=== PATIENT | female | born 1985 | race African-American/Black ===

== ENCOUNTER 2019-04-17 09:10 | Outpatient (RCR) | payer BC, SELFPAY ==
[2019-04-17 10:29] VITALS: BMI 46.1
[2019-04-17 10:30] VITALS: BMI 46.1
== END 2019-07-16 23:59 | disposition home or self-care (01) ==
LOC: ANHDMC 09:10
PROVIDERS: PCP Physician Assistant; Visit Provider Obstetrics & Gynecology
DX: O24.419 Gestational diabetes mellitus in pregnancy, unspecified control (principal); Z3A.30 30 weeks gestation of pregnancy; Z71.89 Other specified counseling; Z71.3 Dietary counseling and surveillance
CPT/HCPCS: 97802; G0108

== ENCOUNTER 2019-05-18 11:54 | Observation (INO) | payer BC, SELFPAY ==
--- NOTE | 2019-05-18 11:54 | OBADM ---
This patient, Sri Thompson, admitted to the OB room OB Post 117 for observation. Patient/family oriented to hospital policies and general routines including ID bracelet, bed and alarms, visiting hours, pain management, procedures, bathroom and other care routines, personal items, smoking policy, room service/diet, and visiting hours. Patient/Family are encouraged to report perceived risks to care and to ask questions if they do not understand what they are told or what they should do.
[2019-05-18 12:30] VITALS: BMI 46.8
[2019-05-18 12:46] VITALS: BP 116/65; PULSE 72
--- NOTE | 2019-05-18 16:38 | PC.NURSE ---
Called Dr. Ho with pt status. Informed of pt complaining of back and pelvic pressure. Pt states that she does not feel the pain when she is sitting, only when she is standing. Pt states that her student pushed a desk into her abdomen. Reactive tracing. Occasional contractions seen, but less than 6 per hour. Blood type is A+. May D/C home.
--- NOTE | 2019-05-22 08:10 | PM.OBTRLD ---
OB - Triage/Final Diagnosis Visit Information Date of evaluation: 05/18/19 Reason for evaluation: threatened labor and other (back pain)
== END 2019-05-18 14:05 | disposition home or self-care (01) ==
PROVIDERS: Admitting Provider Student in an Organized Health Care Education/Training Program; PCP Physician Assistant; Visit Provider Student in an Organized Health Care Education/Training Program
DX: O47.03 False labor before 37 completed weeks of gestation, third trimester (principal); Z3A.34 34 weeks gestation of pregnancy; O99.89 Other specified diseases and conditions complicating pregnancy, childbirth and the puerperium; M54.9 Dorsalgia, unspecified
CPT/HCPCS: G0378; G0379

== ENCOUNTER 2019-06-07 15:08 | Inpatient (IN) | payer BC, SELFPAY ==
[2019-06-07 17:45] LABS: Glucose Point of Care 116 (65-105)
--- NOTE | 2019-06-07 18:00 | OBADM ---
This patient, Sri Thompson, admitted to the OB room OB Post 113 for observation. Patient/family oriented to hospital policies and general routines including ID bracelet, bed and alarms, visiting hours, pain management, procedures, bathroom and other care routines, personal items, smoking policy, room service/diet, and visiting hours. Patient/Family are encouraged to report perceived risks to care and to ask questions if they do not understand what they are told or what they should do.
[2019-06-07] MEDS: LACTATED RINGERS 1,000 ML 200 ML IV CONT (18:35)
--- NOTE | 2019-06-07 19:30 | PC.NURSE ---
Updated Dr. Ho on FHT and maternal assessment. Patient denies contractions. Patient resting comfortably in left lateral position. Dr. Ho reviewed strip at home, will call back with further orders.
--- NOTE | 2019-06-07 19:49 | PC.NURSE ---
Order given to keep patient overnight for observation and FHT monitoring. Patient to continue to take home medications. Patient and FHT will be re-evaluated in AM.
--- NOTE | 2019-06-07 19:54 | PC.NURSE ---
Order given to discontinue LR.
[2019-06-07 21:47] VITALS: BP 109/70; PULSE 64
[2019-06-07] MEDS: glyBURIDE 5 MG TABLET PO (21:50)
[2019-06-07 21:52] LABS: Glucose Point of Care 160 (65-105)
[2019-06-08] VITALS (165 sets, daily range): BP systolic 108–195; BP diastolic 53–138; PULSE 25–104; RESP 18–20; TEMP 36.2–36.9; O2SAT 85–100; BMI 48.2
--- NOTE | 2019-06-08 00:46 | LDADM ---
This patient, Sri Thompson, was admitted to Labor/Delivery/Recovery 109 on 06/08/19 at 00:46. Plans for labor, pain management and were discussed with patient. Patient/family oriented to hospital policies and general routines including ID bracelet, bed and alarms, visiting hours, pain management, procedures, bathroom and other care routines, personal items, smoking policy, room service/diet and guest tray routines, security routines, and visiting hours. Patient/Family are encouraged to report perceived risks to care and to ask questions if they do not understand what they are told or what they should do. See OBIX for further documentation.
[2019-06-08] MEDS: LACTATED RINGERS 1,000 ML 125 ML IV CONT ×2 (01:30→09:35)
[2019-06-08] MEDS: MISOPROSTOL 25 MCG TABLET VAGINAL ×2 (02:12→06:27)
[2019-06-08 02:21] LABS: Basophils Percent Auto 0.3 % (0.2-1.2); Eosinophils Absolute Auto 0.1 K/mm3 (0-0.3); Eosinophils Percent Auto 0.8 % (0-4.4); Hematocrit 33.9 % (37.0-47.0); Immature Granulocyte Absolute 0.03 K/mm3 (0.00-0.031); Immature Granulocyte Percent A 0.4 % (0-0.5); Lymphocytes Absolute Auto 2.22 K/mm3 (0.9-3.2); Lymphocytes Percent Auto 28.9 % (18.3-44.2); Mean Corpuscular HGB Conc 32.4 g/dl (32-36); Mean Corpuscular Hemoglobin 29.6 pg (26-34); Mean Corpuscular Volume 91.4 fl (80-100); Mean Platelet Volume 9.1 fl (7.4-10.4); Monocytes Absolute Auto 0.8 K/mm3 (0.1-0.6); Monocytes Percent Auto 10.3 % (2.6-8.5); Neutrophils Absolute Auto 4.6 K/mm3 (1.3-6.7); Neutrophils Percent Auto 59.3 % (45.5-73.1); Platelet Count Result 225 k/mm3 (150-375); Red Blood Count 3.71 M/mm3 (4.2-5.4); Red Cell Distribution Width 14.4 % (11.5-14.5); White Blood Count 7.7 K/mm3 (4.5-10.0)
--- NOTE | 2019-06-08 05:24 | PC.NURSE ---
Called Lab in regards to missing results for RPR. clock repair technician stated she will look into it and call us if anything further is needed.
[2019-06-08 05:55] LABS: Glucose Point of Care 69 (65-105)
[2019-06-08 07:50] LABS: Glucose Point of Care 64 (65-105)
--- NOTE | 2019-06-08 08:11 | WPDHPUPDATE1 ---
History and Physical Update Update Date/Time: 06/08/19 08:11 34 yo G1 at 37w6d with complicated by gestational diabetes. She was sent to triage for NST which was found to be non-reactive. Pt received a 11/23 BPP. She was kept overnight for observation. FHT continued to have recurrent decelerations. She endorses good FM. She denies any vaginal bleeding or LOF History and Physical has been reviewed, including an updated exam of the patient. There are NO changes in the patient's condition. Risks, benefits, and alternatives have been discussed and questions answered. Patient agrees to proceed with procedure. A/P: 34 you G1 at 37w6 with NRFHT admit to L&D routine admission orders plan for IOL due to NRFHT Rh+ GBS neg FHT category 2 plan for cervical cytotec continuous EFM will plan for insulin sliding scale for GDM
[2019-06-08 09:02] LABS: Rapid Plasma Reagin Non-Reactive (NonReactive)
--- NOTE | 2019-06-08 10:47 | WPDANESEPPF ---
Anes - Initial Pre Proc Eval Date/Time: 06/08/19 10:47 Surgeon: Bakari Daniel MD Pre Op Diagnosis: contractions Patient Data Age: 34 Gender: F Height: 5 ft 11 in Weight: 157 kg Last Vital Signs Temp 36.8 C 06/08/19 06:29 Pulse 64 06/08/19 10:46 BP 128/57 L 06/08/19 10:46 Pulse Ox 100 06/08/19 10:44 Allergies Allergy/AdvReac Type Severity Reaction Status Date / Time Cephalosporins Allergy Unknown Swelling Verified 05/17/19 16:13 Penicillins Allergy Unknown Swelling Verified 05/17/19 16:13 Home Medications Medication Instructions Recorded Confirmed Type PNV cmb#95-ferrous fumarate-FA 1 tablet PO DAILY 05/26/19 06/07/19 History [] glyburide 5 mg PO HS 05/26/19 06/07/19 History Laboratory Tests 06/07/19 06/07/19 06/08/19 17:41 21:48 01:13 WBC 7.7 K/mm3 K/mm3 (4.5-10.0) RBC 3.71 M/mm3 L M/mm3 (4.2-5.4) Hgb 11.0 g/dL L g/dL (12.0-15.0) Hct 33.9 % L % (37.0-47.0) MCV 91.4 fl fl (80-100) MCH 29.6 pg pg (26-34) MCHC 32.4 g/dl g/dl (32-36) RDW 14.4 % % (11.5-14.5) Plt Count 225 k/mm3 k/mm3 (150-375) MPV 9.1 fl fl (7.4-10.4) Immature Gran % (Auto) 0.4 % % (0-0.5) Neut % (Auto) 59.3 % % (45.5-73.1) Lymph % (Auto) 28.9 % % (18.3-44.2) [place] % (Auto) 10.3 % H % (2.6-8.5) Eos % (Auto) 0.8 % % (0-4.4) Baso % (Auto) 0.3 % % (0.2-1.2) Lymph # (Auto) 2.22 K/mm3 K/mm3 (0.9-3.2) [place] # (Auto) 0.8 K/mm3 H K/mm3 (0.1-0.6) Eos # (Auto) 0.1 K/mm3 K/mm3 (0-0.3) Baso # (Auto) 0.0 K/mm3 K/mm3 (0.0-0.1) Abs Immat Gran (auto) 0.03 K/mm3 K/mm3 (0.00-0.031) Absolute Neuts (auto) 4.6 K/mm3 K/mm3 (1.3-6.7) Absolute Nucleated RBC 0.0 K/mm3 K/mm3 (0.0-0.012) Nucleated RBC % 0.0 % % (0.0-0.2) POC Capillary Glucose 116 mg/dl H mg/dl 160 mg/dl H mg/dl (65-105) (65-105) RPR Blood Type Antibody Screen 06/08/19 06/08/19 06/08/19 01:13 01:13 03:51 WBC RBC Hgb Hct MCV MCH MCHC RDW Plt Count MPV Immature Gran % (Auto) Neut % (Auto) Lymph % (Auto) [place] % (Auto) Eos % (Auto) Baso % (Auto) Lymph # (Auto) [place] # (Auto) Eos # (Auto) Baso # (Auto) Abs Immat Gran (auto) Absolute Neuts (auto) Absolute Nucleated RBC Nucleated RBC % POC Capillary Glucose 69 mg/dl mg/dl (65-105) RPR Non-reactive (NonReactive) Blood Type A Positive Antibody Screen Negative 06/08/19 07:23 WBC RBC Hgb Hct MCV MCH MCHC RDW Plt Count MPV Immature Gran % (Auto) Neut % (Auto) Lymph % (Auto) [place] % (Auto) Eos % (Auto) Baso % (Auto) Lymph # (Auto) [place] # (Auto) Eos # (Auto) Baso # (Auto) Abs Immat Gran (auto) Absolute Neuts (auto) Absolute Nucleated RBC Nucleated RBC % POC Capillary Glucose 64 mg/dl L mg/dl (65-105) RPR Blood Type Antibody Screen Patient hx anesthesia problems: none Family hx anesthesia problems: none PMFSH Past Medical History Medical History (Updated 06/08/19 @ 10:50 by Vasu Gee MD) Anxiety Diabetes Family History Family History Grandparent Diabetes mellitus Mother Patient's mother is in good health Father Patient's father is in good health Family history of diabetes joyce
--- NOTE | 2019-06-08 11:18 | PM.OBPNLAB ---
Pain Control Date/time seen: 06/08/19 11:18 Pain control: epidural Comments: pt comfortable now with epidural. Pelvic Exam Dilation (cm): 3 Effacement (%): 50 station: -3 Amniotic membrane status: Intact Contractions Monitor mode: External Contraction frequency: 4 Contraction pattern: Regular Status status: Category ll Comments: FHT with recurrent decelerations, FHT returns back to baseline after decel, moderate variability Assessment and Plan Assessment: induction ongoing Plan: continuous present management Comments: FHT category 2. FHT responding to interventions. discussed POC with patient. will continue labor induction. Pt still getting comfortable with epidural. Will plan for AROM and placement of IUPC after patient comfortable.
[2019-06-08 11:23] LABS: Glucose Point of Care 74 (65-105)
--- NOTE | 2019-06-08 11:52 | PM.OBPNLAB ---
Pain Control Date/time seen: 06/08/19 11:52 Pain control: epidural Pelvic Exam Dilation (cm): 3 Effacement (%): 50 station: -3 Amniotic membrane status: Ruptured Comments: AROM for clear fluid Contractions Monitor mode: Internal Contraction frequency: 4 Contraction pattern: Regular Status status: Category ll Assessment and Plan Assessment: induction ongoing Plan: continuous present management Comments: AROM for scant amount of clear fluid. IUPC placed. D5%LR given. Pt BS was 74. pt does not routinely have good glycemic control. will give D5LR and monitor. transition to LR with insulin sliding scale if BS >200.
[2019-06-08] MEDS: DEXTROSE 5%/LACTATED RINGERS 1,000 ML 100 ML IV CONT (11:58)
[2019-06-08] MEDS: LABETALOL HCL INJ 100 MG/20 ML VIAL 20 MG IV PUSH (12:35)
[2019-06-08 13:10] LABS: Alanine Aminotransferase 16 U/L (4-35); Albumin Level 3.2 g/dL (3.5-5.1); Alkaline Phosphatase 106 U/L (38-126); Aspartate Amino Transferase 22 U/L (14-36); Bilirubin,Total 0.3 mg/dL (0.2-1.3); Blood Urea Nitrogen 6 mg/dL (7-17); Calcium 8.7 mg/dL (8.4-10.2); Carbon Dioxide 21 mmol/L (22-30); Chloride 102 mmol/L (98-107); Estimated CRCL calculation 159 ml/min; Estimated Glomerular Filt Rate > 60; Glucose 86 mg/dL (65-105); Potassium 4.2 mmol/L (3.4-5.0); Sodium 133 mmol/L (137-145); Uric Acid 4.4 mg/dL (2.5-7.5)
[2019-06-08 14:11] LABS: Glucose Point of Care 98 (65-105)
--- NOTE | 2019-06-08 16:41 | PM.OBPNLAB ---
Pain Control Date/time seen: 06/08/19 16:41 Pain control: epidural Comments: pt complaining of pain with contractions Pelvic Exam Dilation (cm): 6 Effacement (%): 90 station: -2 Amniotic membrane status: Ruptured Contractions Monitor mode: Internal Contraction frequency: 3 Contraction pattern: Regular Status status: Category l Assessment and Plan Pitocin rate (mU/min): 3 Assessment: induction ongoing Plan: continuous present management Comments: pt complaining of pain. will give dose of IV tylenol. continue to monitor
[2019-06-08 17:05] LABS: Glucose Point of Care 88 (65-105)
[2019-06-08] MEDS: MISOPROSTOL 200 MCG TABLET 800 MCG (18:49)
--- NOTE | 2019-06-08 18:59 | PM.OBPRVD ---
OB - Delivery Note Procedure Procedure: Patient pushed for a spontaneous vaginal delivery. A nuchal cord was noted x1 which was reduced on the perineum. The fetus was delivered atraumatically and placed on the maternal abdomen. The cord was clamped and cut after 1 minute of life. Thick meconium was noted at delivery. The mouth and nose were bulb suctioned on the maternal abdomen. The cord was double clamped and cut and a segment of cord was collected for cord gases. Cord blood was collected for blood type and Coomb's testing. The placenta delivered spontaneously and was noted to be intact. The perineum was inspected and there was a 1st degree perineal laceration as well as a periclitoral laceration. A small blood vessel near the periclitoral laceration was noted to be bleeding. The patient was complaining of feeling pain so the area was anesthetised with local lidocaine. The laceration was repaired with 3-0 vicryl in the usual fashion. Hemostasis was obtained with a series of figure of eight sutures in the periclitoral laceration. It was difficult to perform fundal massage given body habitus. There was a small amount of bright red bleeding from the cervix. 800 mcg of cytotec was placed rectally. The uterus was firm and good hemostasis was noted. The patient and fetus were stable in the delivery room. events: Gestational Diabetes, Labor Induction and Meconium Stained Fluid Intrapartal events: Diabetes and Deceleration Induction method: AROM, per misoprostol protocol and per pitocin protocol Delivery monitor: external FHT Route of delivery: Episiotomy description: None Laceration description: Periurethral - 1st Degree (extending to elsie-clitoral) Delivery repair: vicryl Specimen: Yes (placenta) Estimated blood loss (mL): 300 Anesthesia type: Local Disposition: floor () Complications: No immediate complications Baby Date of : 06/08/19 Time of : 18:27 Weeks of gestation at delivery: 37 Infant gender: Male Weight (pounds): 8 Weight (ounces): 7 presentation: vertex position: Right Occiput Anterior Placenta delivery description: Spontaneous cord vessel description: 3 Vessels, Nuchal Cord and Reduced score one minute: 8 score five minutes: 9
[2019-06-08] MEDS: BENZOCAINE 20% AER SPR (*SP) 56 GM CAN 1 SPRAY TOPICAL (20:56)
[2019-06-08] MEDS: WITCH HAZEL 40 PADS 1 PAD TOPICAL (20:56)
[2019-06-08] MEDS: IBUPROFEN 600 MG TABLET PO (21:16)
--- NOTE | 2019-06-08 22:25 | OBPPTRN ---
Patient transferred to post room #277 via wheelchair - arrived via crib. Support person present. Oriented to unit, room, information board, rooming in, admission packet and security measures. Patient verbalizes understanding.
[2019-06-09 05:37] LABS: Hematocrit 31.5 % (37.0-47.0); Hemoglobin 10.2 g/dL (12.0-15.0)
[2019-06-09] MEDS: DOCUSATE SODIUM 100 MG CAPSULE PO (07:11)
[2019-06-09] MEDS: MULTIVIT/MIN/PREN/FOL AC/IRON TABLET 1 TAB PO (07:11)
[2019-06-09] MEDS: IBUPROFEN 600 MG TABLET PO ×2 (07:11→13:30)
--- NOTE | 2019-06-09 07:30 | P.PNOB_ITS ---
OB - PN: Subj Subjective Date/time seen: 06/09/19 07:30 Patient comments: no complaints, pain well controlled and tolerating diet [place] feeding status: exclusively breast feeding Narrative: patient doing well this AM. No complaints. Pain is well controlled. She reports minimal bleeding. She is ambulating and voiding without difficulty. She is tolerating PO. She denies N/V, fever, chills. OB - PN: Obj Data Labs CBC & Chem 7: 06/09/19 05:27 06/08/19 12:26 Labs: Laboratory Results - last 24 hr 06/08/19 06/08/19 06/08/19 01:13 07:23 11:19 Hgb Hct Sodium Potassium Chloride Carbon Dioxide BUN Creatinine Estim Creat Clear Calc Estimated GFR Glucose POC Capillary Glucose 64 L 74 Uric Acid Calcium Total Bilirubin AST ALT Alkaline Phosphatase Total Protein Albumin RPR Non-reactive 06/08/19 06/08/19 06/08/19 12:26 13:38 17:02 Hgb Hct Sodium 133 L Potassium 4.2 Chloride 102 Carbon Dioxide 21 L BUN 6 L Creatinine 0.70 Estim Creat Clear Calc 159 Estimated GFR > 60 Glucose 86 POC Capillary Glucose 98 88 Uric Acid 4.4 Calcium 8.7 Total Bilirubin 0.3 AST 22 ALT 16 Alkaline Phosphatase 106 Total Protein 6.0 L Albumin 3.2 L RPR 06/09/19 05:27 Hgb 10.2 L Hct 31.5 L Sodium Potassium Chloride Carbon Dioxide BUN Creatinine Estim Creat Clear Calc Estimated GFR Glucose POC Capillary Glucose Uric Acid Calcium Total Bilirubin AST ALT Alkaline Phosphatase Total Protein Albumin RPR OB - PN A/P Plan day: 1 Plan: routine care Comments: patient doing well H/H stable BS controlled will plan for circumcision tomorrow continue routine care Time Spent With Patient Time: Total time spent is greater than 50% in coordination of care (as docum ented) at patient's floor/unit and/or counseling patient: Time with patient: less than 15 minutes Review of Systems Review of Systems: All systems reviewed & are unremarkable except as noted in HPI and below Exam Const: General: comfortable and no acute distress Resp: Effort & Inspection: normal respiratory effort Cardio: Rate: regular rate GI: GI Palp: Yes Soft to palpation and No Tenderness to palpation present (GI) Auscultation: normal bowel sounds Other: fundus firm and below umbilicus. Psych: Affect: normal affect
[2019-06-09 08:00] VITALS: BP 139/81; PULSE 84; RESP 18; TEMP 37.3
--- NOTE | 2019-06-09 09:48 | WPDANLDPN2 ---
Anes-Prog Note L&D Date/Time: 06/09/19 09:48 Comfortable throughout: labor and delivery Neuraxial method: epidural Epidural/Spinal procedure site: clean & non-tender Neuro status: Neuro function grossly intact. Cardiovascular status: normal Respiratory status: normal Airway patency: baseline Mental status: baseline Post-Op hydration status: normal Vital Signs: Last Vital Signs Temp 36.6 C 06/08/19 23:03 Pulse 70 06/08/19 23:03 Resp 18 06/08/19 23:03 BP 156/76 H 06/08/19 23:03 Pulse Ox 100 06/08/19 16:37 I/O: Intake & Output 06/08/19 06/09/19 06/09/19 23:59 07:59 15:59 Intake Total 1500 Output Total 140 Balance 1360 Post-procedural complaints: none Patient feedback: Patient satisfied with anesthetic care.
--- NOTE | 2019-06-09 15:01 | PM.OBDSVD ---
OB - DS: Summary OB Procedures : None OB Procedures Intrapartum: Spontaneous Vag Delivery OB Procedures: : None Status at Discharge Functional status at discharge: independent ambulation Overall status at discharge: patient is back to baseline Time Spent with Patient Time attestation: Total time spent providing and/or coordinating discharge services: Time spent: Less than 30 minutes Exam Const: General: comfortable and no acute distress Resp: Effort & Inspection: normal respiratory effort Auscultation: clear to auscultation bilaterally Cardio: Rate: regular rate GI: GI Palp: Yes Soft to palpation Auscultation: normal bowel sounds Other: Fundus firm below umbilicus Psych: Appearance: grossly normal Mental Status: mental status grossly normal Affect: normal affect DS: Data Data Completed and Pending Pending studies at discharge: Pending at discharge 06/08/19 18:30 Surgical [PTH] Routine Labs on day of discharge: Labs from last 24 hours 06/09/19 06/08/19 05:27 17:02 Hgb 10.2 L Hct 31.5 L POC Capillary Glucose 88 Discharge Plan Discharge Discharging Clinician: Quan Ho Patient Disposition: Home, Self-Care Activity: pelvic rest Diet: gestational diabetic Discharge Instructions: call or return for temperature >100.4, bleeding >2 pads/hr for 2 hrs, pain not controlled with medications, signs/symptoms of mastitis Patient Instructions: Antibiotic Form Stand Alone Forms: General Discharge Information Follow-up/Referrals: Bakari Daniel MD [Physician] - 4 Weeks Discharge Medications: New Qji-Z-Hhvlny Cream 1 applic topical PRN PRN (Reason: Sore Nipples) Qty: 1 RF: 0 acetaminophen [Mapap (acetaminophen)] 325 mg Tablet 650 mg PO Q6H PRN (Reason: Mild Pain (1-3) Or Headache) Qty: 30 RF: 0 Dermoplast (with menthol) 20-0.5 % Aerosol 1 spray topical PRN PRN (Reason: Perineal Discomfort) Qty: 1 RF: 0 ibuprofen 600 mg Tablet 600 mg PO Q6H PRN (Reason: Cramping) Qty: 30 RF: 0 Continued glyburide 5 mg Tablet 5 mg PO HS RF: 0 PNV cmb#95-ferrous fumarate-FA [] 28 mg iron- 800 mcg Tablet 1 tablet PO DAILY RF: 0 Date of admission: 06/08/19 00:46 Primary Care Provider: Georgi Whitman Admitting Provider: Bakari Daniel Attending physician on admission: Bakari Daniel
--- NOTE | 2019-06-09 17:26 | PC.NURSE ---
Patient viewed the discharge video Mother & Baby Care, The First Two Weeks . Patient was given the opportunity and encouraged to ask questions. Patient verbalized understanding of information shared and has been given the mother/baby guide for home reference.
--- NOTE | 2019-06-09 17:29 | PC.NURSE ---
Discharge instructions given to mother regarding follow up visit for b/p check on Tuesday06/11/19 at 1430. Pt. verbalized understanding. Instructed to pickup driver prescriptions for discomfort. No further questions or concerns verbalized. Very pleasant and cooperative. Going to [facility] to see when leaving here.
[2019-06-11 06:54] LABS: Glucose Point of Care 141 (65-105)
[2019-06-11 14:45] VITALS: BP 138/74; PULSE 60; RESP 20; TEMP 37.1
== END 2019-06-09 16:40 | disposition home or self-care (01) | DRG 768 ==
LOC: ANHLDR 17:34 → ANHOBPP 20:25 → ANHOB2 06-09 15:03 → ANHLDR 06-12 12:39 → ANHOB2 06-12 12:39
PROVIDERS: Obstetrics & Gynecology; Admitting Provider Student in an Organized Health Care Education/Training Program; PCP Physician Assistant; Visit Provider Student in an Organized Health Care Education/Training Program
DX: O24.429 Gestational diabetes mellitus in childbirth, unspecified control (principal); Z37.0 Single live birth; O70.20 Third degree perineal laceration during delivery, unspecified; Z3A.37 37 weeks gestation of pregnancy; Z23 Encounter for immunization; O76 Abnormality in fetal heart rate and rhythm complicating labor and delivery; O69.81X0 Labor and delivery complicated by cord around neck, without compression, not applicable or unspecified; E66.01 Morbid (severe) obesity due to excess calories; O99.214 Obesity complicating childbirth; P03.82 Meconium passage during delivery
CPT/HCPCS: 36415; 80053; 84550; 85014; 85018; 85025; 86592; 86850; 86900; 86901; 88307; A9270; J0131; J2590; J2795; J7120; J7121

== ENCOUNTER 2019-06-07 15:08 | Outpatient (RCR) | payer BC, SELFPAY ==
[2019-05-10 16:52] VITALS: BP 106/57; PULSE 72
[2019-05-17 16:15] VITALS: BP 118/63; PULSE 67
[2019-05-24 16:26] VITALS: BP 121/72; PULSE 68
[2019-05-31 15:58] VITALS: BP 123/75; PULSE 67
--- NOTE | ~2019-06-07 | US_ITS ---
EXAMINATION: US OB limited w BPP EXAM DATE: 06/07/2019 16:40 INDICATION: Gestational diabetes. Third trimester. TECHNIQUE: Pelvic obstetrical transabdominal sonogram was performed by a technologist. There are mu ltiple grayscale and Doppler images available for interpretation. Comparison is made to prior examina tion from 12/10/2018. FINDINGS: There is a single fetus identified in vertex presentation with a heart rate of 152 beats pe r minute. The placenta is located in the fundal position. There is no sonographic evidence of retrop lacental hemorrhage identified. AMNIOTIC FLUID INDEX Quadrant 1: 0 cm Quadrant 2: 2.1 cm Quadrant 3: 3.5 cm Quadrant 4: 2.9 cm Amniotic fluid index: 8.5 cm. (The 5th -- 95th percentile range is 7.3-23.9 for 38 weeks gestation age). BIOPHYSICAL PROFILE (performed by the technologist) breathing (30 sec sustained breathing in 30 minutes): 2 out of 2 movement (3 gross body movements in 30 minutes): 2 out of 2 tone (one episode of lpdjwmr-depmfkfhd-dfxqmws limb movement): 2 out of 2 Amniotic fluid pocket (2 cm): 2 out of 2 Total score: 8 out of 8 IMPRESSION: 1. Single fetus with heart rate of 152 bpm. 2. Normal biophysical profile score of 8 out of 8. 3. MATT 8.5 cm, lower limits of normal. Reviewed, dictated and finalized at location A. FRAME PROGRAMMER ANALYST
== END 2019-06-11 08:25 | disposition home or self-care (01) ==
LOC: ANHOBOP 15:08
PROVIDERS: PCP Physician Assistant; Visit Provider Obstetrics & Gynecology
DX: O24.419 Gestational diabetes mellitus in pregnancy, unspecified control (principal); Z3A.33 33 weeks gestation of pregnancy; Z3A.34 34 weeks gestation of pregnancy; Z3A.35 35 weeks gestation of pregnancy; Z3A.36 36 weeks gestation of pregnancy
CPT/HCPCS: 59025; 76815; 76819

== ENCOUNTER 2020-01-23 05:11 | Emergency (ER) | payer BC, SELFPAY ==
--- NOTE | ~2020-01-23 | XR_ITS ---
XR chest 2V DATE: 01/23/2020 06:05 INDICATION: Chest pain TECHNIQUE: PA and lateral views COMPARISON: None FINDINGS: Cardiomegaly. No hilar or mediastinal enlargement. No pulmonary infiltrate or consolidation , pleural effusion or pulmonary vascular congestion or pneumothorax. IMPRESSION: Cardiomegaly Reviewed, dictated and finalized at location A. IMPRESSION: Cardiomegaly
--- NOTE | 2020-01-23 05:13 | ECG_ITS ---
Measurements Intervals [place] Rate: 63 P: -32 SD: 173 QRS: 7 QRSD: 85 T: 5 QT: 390 QTc: 401 Interpretive Statements SINUS OR ECTOPIC ATRIAL RHYTHM BORDERLINE T WAVE ABNORMALITY- INFERIOR LEADS BORDERLINE ECG Electronically Signed On 01-23-2020 6:53:41 CDT by Danny Wasserman D.O.
[2020-01-23 05:15] VITALS: BP 164/116; PULSE 68; RESP 17; TEMP 37.2; O2SAT 100
[2020-01-23 05:31] LABS: Basophils Percent Auto 0.5 % (0.2-1.2); Eosinophils Absolute Auto 0.1 K/mm3 (0-0.3); Eosinophils Percent Auto 0.8 % (0-4.4); Hematocrit 37.2 % (37.0-47.0); Hemoglobin 11.8 g/dL (12.0-15.0); Immature Granulocyte Absolute 0.04 K/mm3 (0.00-0.031); Immature Granulocyte Percent A 0.5 % (0-0.5); Lymphocytes Absolute Auto 1.57 K/mm3 (0.9-3.2); Lymphocytes Percent Auto 21.3 % (18.3-44.2); Mean Corpuscular HGB Conc 31.7 g/dl (32-36); Mean Corpuscular Hemoglobin 28.8 pg (26-34); Mean Corpuscular Volume 90.7 fl (80-100); Mean Platelet Volume 8.9 fl (7.4-10.4); Monocytes Absolute Auto 0.6 K/mm3 (0.1-0.6); Monocytes Percent Auto 8.6 % (2.6-8.5); Neutrophils Percent Auto 68.3 % (45.5-73.1); Platelet Count Result 242 k/mm3 (150-375); Red Cell Distribution Width 12.2 % (11.5-14.5); White Blood Count 7.4 K/mm3 (4.5-10.0)
[2020-01-23] MEDS: BELLADONNA ALK/PHENOB ELIX 10 ML, MAG HYDROX/ALUMINUM HYD/SIMETH 30 ML, LIDOCAINE HCL 2... PO (05:35)
[2020-01-23] MEDS: ONDANSETRON INJ 4 MG/2 ML VIAL IV PUSH (05:35)
[2020-01-23 05:42] LABS: Anion Gap 8 mmol/L (8-16); Blood Urea Nitrogen 11 mg/dL (7-17); Calcium 9.2 mg/dL (8.4-10.2); Carbon Dioxide 29 mmol/L (22-30); Chloride 101 mmol/L (98-107); Estimated CRCL calculation 151 ml/min; Estimated Glomerular Filt Rate > 60; Glucose 184 mg/dL (65-105); Potassium 4.1 mmol/L (3.4-5.0); Sodium 138 mmol/L (137-145)
[2020-01-23 05:44] LABS: Prothrombin Time 12.4 Seconds (11.1-14.7)
[2020-01-23 05:45] LABS: Partial Thromboplastin Time 29.2 SECONDS (22.3-36.8)
[2020-01-23 05:54] LABS: Troponin I < 0.012 ng/mL (0.000-0.034)
--- NOTE | 2020-01-23 05:59 | ED.GENADULT ---
HPI - General Adult General Chief complaint: Chest Pain Stated complaint: chest pain Time Seen by Provider: 01/23/20 05:21 History of Present Illness HPI narrative: Patient is a 34-year-old female who presents the ER with abdominal pain and chest pain. Patient had eaten some pizza tonight and went to bed. She then started having some mild right low back pain she then developed diffuse abdominal cramping and discomfort. She has had some belching. She is now having some radiation of the abdominal discomfort up into her central chest region. No exertional component. No diarrhea. No known sick contacts. Has not taken any medications to improve her discomfort. She has had some nausea and vomiting as well. Related Data Home Medications Medication Instructions Recorded Confirmed PNV cmb#95-ferrous fumarate-FA 1 tablet PO DAILY 05/26/19 06/07/19 [] Allergies Allergy/AdvReac Type Severity Reaction Status Date / Time Cephalosporins Allergy Unknown Swelling Verified 10/09/19 13:13 Penicillins Allergy Unknown Swelling Verified 10/09/19 13:13 Review of Systems Review of Systems: All systems reviewed & are unremarkable except as noted in HPI and below Constitutional: Constitutional: Denies chills, Denies fever(s) and Denies weakness ENT: Denies nasal congestion and Denies sore throat Cardiovascular: Cardiovascular: Reports chest pain and Denies radiating jaw, neck or arm pain Respiratory: Respiratory: Denies cough, Denies dyspnea and Denies wheezing Gastrointestinal: Gastrointestinal: Reports abdominal pain, Denies diarrhea, Reports nausea and Reports vomiting Musculoskeletal: Musculoskeletal: Reports back pain and Denies muscle cramps PMFSH Past Medical History Medical History (Updated 01/23/20 @ 06:36 by Delfin Solitario MD) Anxiety Diabetes Elevated BP without diagnosis of hypertension Surgical History Surgical History (Updated 01/23/20 @ 06:07 by Delfin Solitario MD) History of tonsillectomy Social History Social History Smoking status: Never smoker Second hand tobacco smoke exposure: No Alcohol intake: current Substance use: never Gender identity (if verbalized by the patient): Female Spiritual care concerns: No Exam Narrative: Exam Narrative: GENERAL: Well-appearing, well-nourished, and in no acute distress. HEAD: Normocephalic, atraumatic. ENT: Mucous membranes moist. CHEST: Clear to auscultation. No respiratory distress. HEART: Regular rate and rhythm. Normal peripheral pulses. ABDOMEN: Soft, nontender, nondistended, normal active bowel sounds. EXTREMITIES: Normal range of motion. No edema. NEURO: Alert and oriented x3. PSYCH: Normal mood and affect. Course Course Emergency Course: Labs unremarkable. Patient received morphine/Phenergan/Zofran. Discharge home with supportive therapy. May be early GI illness given the crampy nature of the pain. No pain on palpation. Vital Signs Vital signs: Vital Signs Temperature 99.0 F 01/23/20 05:15 Pulse Rate 68 01/23/20 05:15 Respiratory Rate 17 01/23/20 05:15 Blood Pressure 164/116 H 01/23/20 05:15 Pulse Oximetry 100 01/23/20 05:15 Temperature 99.0 F 01/23/20 05:15 Pulse Rate 68 01/23/20 06:30 Respiratory Rate 24 H 01/23/20 06:30 Blood Pressure 161/86 H 01/23/20 06:30 Pulse Oximetry 100 01/23/20 06:30 Medical Decision Making Vital Signs Vital Signs: Vital Signs Temperature 99.0 F 01/23/20 05:15 Pulse Rate 68 01/23/20 05:15 Respiratory Rate 17 01/23/20 05:15 Blood Pressure 164/116 H 01/23/20 05:15 Pulse Oximetry 100 01/23/20 05:15 Temperature 99.0 F 01/23/20 05:15 Pulse Rate 68 01/23/20 06:30 Respiratory Rate 24 H 01/23/20 06:30 Blood Pressure 161/86 H 01/23/20 06:30 Pulse Oximetry 100 01/23/20 06:30 Lab Data Result diagrams: 01/23/20 05:24 01/23/20 05:24
--- NOTE | 2020-01-23 06:07 | PC.NURSE ---
Added on Lipase and Hepatic panel to pt. specimen.
[2020-01-23 06:20] LABS: Alanine Aminotransferase 19 U/L (4-35); Albumin Level 4.2 g/dL (3.5-5.1); Alkaline Phosphatase 90 U/L (38-126); Aspartate Amino Transferase 23 U/L (14-36); Bilirubin,Total 0.4 mg/dL (0.2-1.3); Lipase 104 U/L (23-300)
[2020-01-23] MEDS: MORPHINE SULFATE (*CRX) 4 MG/ML INJ IV PUSH (06:26)
[2020-01-23] MEDS: PROMETHAZINE HCL 25 MG/ML AMPUL 12.5 MG IV PUSH (06:26)
[2020-01-23 06:30] VITALS: BP 161/86; PULSE 68; RESP 24; O2SAT 100
== END 2020-01-23 06:49 | disposition home or self-care (01) ==
PROVIDERS: Emergency Provider Emergency Medicine; PCP Physician Assistant
DX: R10.84 Generalized abdominal pain (principal); E11.9 Type 2 diabetes mellitus without complications; F41.9 Anxiety disorder, unspecified
CPT/HCPCS: 36415; 71046; 80048; 80076; 83690; 84484; 85025; 85610; 85730; 93005; 96374; 96375; 99284; A9270; J2270; J2405; J2550

== ENCOUNTER 2023-01-13 09:44 | Emergency (ER) | payer BC, SELFPAY ==
[2023-01-13] VITALS (7 sets, daily range): BP systolic 114–132; BP diastolic 70–86; PULSE 61–80; RESP 13–20; TEMP 36.4; O2SAT 92–100
--- NOTE | ~2023-01-13 | CT_ITS ---
CT of the Abdomen and Pelvis: Indication: Abdominal pain Technique: 2.5 mm axial scans were obtained through the abdomen and pelvis following intravenous adm inistration of 100 cc of Omnipaque 350. Dose reduction technique was used on this scan by utilizing a utomated exposure control and iterative reconstruction technique. The dose-length product (DLP) was 1 547.13 mGy-cm. Findings: Scans through the lung bases are unremarkable. The liver, spleen, pancreas, gallbladder, adrenals and kidneys are within normal limits. No evidence of aortic aneurysm. No lymphadenopathy. Possible concentric wall thickening focally at the hepatic flexure region of the colon (axial images 64-66 for example). No tina bowel obstruction. No other bowel pathology evident. Images through the pelvis were performed. Urinary bladder unremarkable. No adnexal mass seen. No asci brenda. Impression: Possible focal area of concentric wall thickening at the hepatic flexure the colon. Underlying coloni c neoplasm is a potential consideration, despite patient's relatively young age. Consider colonoscopy or enema study to further evaluate. Reviewed, dictated and finalized at [facility]. Impression: Possible focal area of concentric wall thickening at the hepatic flexure the co frank. Underlying colonic neoplasm is a potential consideration, despite patient' s relatively young age. Consider colonoscopy or enema study to further evaluate .
--- NOTE | 2023-01-13 10:09 | ED.GENADULT ---
HPI - General Adult General Chief complaint: Nausea/Vomiting/Diarrhea Stated complaint: N/V/D Time Seen by Provider: 01/13/23 09:55 History of Present Illness HPI narrative: Sri Thompson is a 37 y/o female with PMHx of HTN, DM, HLD who presents with complaints of mid abdominal pain that moves across lower abdomen with nausea vomited X 5 today and diarrhea. Denies fever/chills reports feeling cold chills. Denies changes with urine. LMP Dec 13. Also reports of having a sore throat that started yesterday but otherwise felt well yesterday. No chest pain/ shortness of breath. Related Data Home Medications Medication Instructions Recorded Confirmed vit no.95-ferrous 1 tablet PO DAILY 05/26/19 10/29/22 fumarate 28 mg-folic acid 800 mcg tablet () Allergies Allergy/AdvReac Type Severity Reaction Status Date / Time Cephalosporins Allergy Unknown Swelling Verified 01/13/23 10:06 Penicillins Allergy Unknown Swelling Verified 01/13/23 10:06 Review of Systems Review of Systems: CONSTITUTIONAL: Denies fever, chills, or sweats. EYES: Denies visual changes, redness, or discharge. ENT: Denies rhinorrhea, congestion, sore throat, or otalgia. CARDIOVASCULAR: Denies chest pain, palpitations, or edema. RESPIRATORY: Denies cough or dyspnea. GASTROINTESTINAL: reports abdominal pain with nausea and vomiting and diarrhea that all started today. GENITOURINARY: Denies dysuria or hematuria. SKIN: Denies rash or itching. MUSCULOSKELETAL: Denies back pain, joint pain, or myalgia. NEUROLOGIC: Denies headache, numbness, dizziness, or weakness. PSYCHIATRIC: Denies anxiety or depression. [facility], LATER [facility] Past Medical History Medical History Anxiety Diabetes Elevated BP without diagnosis of hypertension Surgical History Surgical History History of tonsillectomy Family History Family History Grandparent Diabetes mellitus Mother Patient's mother is in good health Father Patient's father is in good health Family history of diabetes mellitus in first degree relative Patient's father is , Onset Age: 48 Sibling Patient's sister is in good health Social History Social History Smoking status: Never smoker Second hand tobacco smoke exposure: No Alcohol intake: current Substance use: never Lack of Transportation: No Lack of Food: Never True Current Housing: I Have Housing Concerned About Future Housing: No Difficulty Paying Gas/Electric Bills: No Difficulty Paying for Meds: No Currently Unemployed: No Education: Master's Degree or Higher Difficulty w/ Childcare or Family Care: No Gender identity (if verbalized by the patient): Female Spiritual care concerns: No Exam Narrative: GENERAL: Well-appearing, well-nourished, and in no acute distress. HEAD: Normocephalic, atraumatic. EYES: PERRLA and EOMI. ENT: Nares clear, no rhinorrhea or epistaxis. Mucous membranes moist. Oropharynx without tonsillar hypertrophy exudate or other lesions. NECK: Supple. No adenopathy or masses. No carotid bruits or JVD CHEST: Clear to auscultation. No respiratory distress. No wheezes rales or rhonchi HEART: Regular rate and rhythm. No murmur heard. Normal peripheral pulses. ABDOMEN: Soft, nondistended, normal active bowel sounds, Pain reproduced with palpation to the mid abodmen EXTREMITIES: Normal range of motion. No edema. SKIN: Warm, dry, no rash. NEURO: No focal deficits. Alert and oriented x3. PSYCH: Normal mood and affect. Course Vital Signs Vital signs: Vital Signs Temperature 36.4 C 01/13/23 09:45 Pulse Rate 80 01/13/23 09:45 Respiratory Rate 20 01/13/23 09:45 Blood Pressure 132/86 01/13/23 09:45 Pulse Oximetry 100 01/13/23 09:45 Oxygen Delive
[2023-01-13 10:25] LABS: Basophils Percent Auto 0.6 % (0.2-1.2); Eosinophils Percent Auto 0.8 % (0-4.4); Hematocrit 43.5 % (37.0-47.0); Hemoglobin 13.5 g/dL (12.0-15.0); Immature Granulocyte Absolute 0.01 K/mm3 (0.00-0.031); Immature Granulocyte Percent A 0.2 % (0-0.5); Lymphocytes Absolute Auto 1.07 K/mm3 (0.9-3.2); Lymphocytes Percent Auto 20.6 % (18.3-44.2); Mean Corpuscular Hemoglobin 28.2 pg (26-34); Mean Corpuscular Volume 90.8 fl (80-100); Mean Platelet Volume 9.1 fl (7.4-10.4); Monocytes Absolute Auto 0.5 K/mm3 (0.1-0.6); Neutrophils Absolute Auto 3.5 K/mm3 (1.3-6.7); Neutrophils Percent Auto 67.8 % (45.5-73.1); Platelet Count Result 270 k/mm3 (150-375); Red Blood Count 4.79 M/mm3 (4.2-5.4); Red Cell Distribution Width 12.5 % (11.5-14.5); White Blood Count 5.2 K/mm3 (4.5-10.0)
[2023-01-13] MEDS: SODIUM CHLORIDE 0.9% IV 1,000 ML 999 ML IV CONT (10:25)
[2023-01-13] MEDS: DICYCLOMINE HCL INJ 20 MG/2 ML VIAL IM (10:27)
[2023-01-13] MEDS: ONDANSETRON INJ 4 MG/2 ML VIAL IV PUSH (10:27)
[2023-01-13] MEDS: KETOROLAC 30 MG/ML VIAL (*BKC) IV PUSH (10:29)
[2023-01-13] MEDS: FAMOTIDINE 20 MG/2 ML VIAL IV PUSH (10:29)
[2023-01-13 10:34] LABS: Alanine Aminotransferase 21 U/L (6-35); Albumin Level 4.8 g/dL (3.5-5.1); Alkaline Phosphatase 65 U/L (38-126); Anion Gap 10 mmol/L (8-16); Aspartate Amino Transferase 29 U/L (14-36); Bilirubin,Total 0.7 mg/dL (0.2-1.3); Blood Urea Nitrogen 12 mg/dL (7-17); Calcium 9.4 mg/dL (8.4-10.2); Carbon Dioxide 25 mmol/L (22-30); Chloride 104 mmol/L (98-107); Estimated CRCL calculation 138 ml/min; Estimated Glomerular Filt Rate > 60; Glucose 99 mg/dL (65-110); Lipase 79 U/L (23-300); Potassium 3.9 mmol/L (3.4-5.0); Sodium 139 mmol/L (137-145)
[2023-01-13 10:35] LABS: Lactic Acid Reflex 1.1 mmol/L (0.7-2.0)
[2023-01-13 11:04] LABS: Influenza A QL RT-PCR Negative (Negative); Influenza B QL RT-PCR Negative (Negative); RSV RNA, RT-PCR Negative (Negative); SARS-CoV-2 RNA PCR Negative (Negative)
[2023-01-13 11:28] LABS: Appearance Urine Slightly Cloudy (Clear); Bilirubin Urine Negative (Negative); Blood Urine Negative (Negative); Color Urine Dark Yellow (Yellow); Glucose Urine UA Negative (Negative); Ketones Urine 1+ mg/dL (Negative); Leukocyte Esterase Ur Negative LEU/UL (Negative); Nitrate Urine Negative (Negative); Protein Urine 1+ mg/dL (Negative); Specific Grav Ur >= 1.030 (1.001-1.035); Urobilinogen Urine 0.2 mg/dL (<2.0)
[2023-01-13 12:05] LABS: Add Urine Microscopic? YES; RBC Urine 0-2 /hpf (0-2); Squamous Epithelial Cell Urine Moderate /hpf (Few); WBC Urine 0-3 /hpf (0-3)
[2023-01-13 12:06] LABS: Bacteria Urine 2+ /hpf
[2023-01-13 12:07] LABS: Calcium Oxalate Crystals Urine Present /hpf
== END 2023-01-13 13:13 | disposition home or self-care (01) ==
PROVIDERS: Emergency Medicine; Emergency Provider Nurse Practitioner Family; PCP Physician Assistant
DX: K52.9 Noninfective gastroenteritis and colitis, unspecified (principal); Z20.822 Contact with and (suspected) exposure to COVID-19; I10 Essential (primary) hypertension; E11.9 Type 2 diabetes mellitus without complications; E78.5 Hyperlipidemia, unspecified; Z79.85 Long-term (current) use of injectable non-insulin antidiabetic drugs
CPT/HCPCS: 36415; 74177; 80053; 81001; 81025; 83605; 83690; 85025; 87637; 96361; 96372; 96374; 96375; 99284; J0500; J1885; J2405; J7030; Q9967

== ENCOUNTER 2023-02-11 07:36 | Outpatient (CLI) | payer BC, SELFPAY ==
--- NOTE | ~2023-02-11 | CT_ITS ---
EXAMINATION: CT abdomen pelvis w con DATE: 02/11/2023 08:03 INDICATION: Gastroenteritis. Colitis. TECHNIQUE: Computed tomography (CT) of the abdomen and pelvis was performed with 100 cc Omnipaque 350 intravenous contrast. The dose-length product was 1648.72 mGy-cm. Automated exposure control and ite rative reconstruction technique were employed. COMPARISON: CT dated 01/13/2023 FINDINGS: Lung bases are unremarkable. Heart size normal. No significant pleural or pericardial effus ion. The liver, spleen, pancreas, adrenal glands and kidneys are unremarkable. Gallbladder is present . Nonobstructive bowel pattern. Normal appendix. Small fat-containing umbilical hernia. Nonobstructiv e bowel gas pattern. No free air or free fluid. No abnormal pelvic masses or fluid collections. No si gnificant vascular abnormality. Mildly prominent mesenteric lymph nodes, likely reactive. No acute os seous abnormality. Mild lumbar spondylosis. IMPRESSION: 1. No acute abdominal abnormality. Reviewed, dictated and finalized at location B.
== END 2023-02-11 07:37 | disposition home or self-care (01) ==
LOC: ANHIMG 07:41
PROVIDERS: PCP Physician Assistant; Visit Provider Physician Assistant
DX: K52.9 Noninfective gastroenteritis and colitis, unspecified (principal)
CPT/HCPCS: 74177; Q9967

== ENCOUNTER 2023-02-17 00:06 | Emergency (ER) | payer BC, SELFPAY ==
--- NOTE | ~2023-02-17 | XR_ITS ---
EXAMINATION: XR chest 1V portable DATE: 02/17/2023 01:55 INDICATION: Left chest pain. TECHNIQUE: A single frontal view of the chest was obtained. COMPARISON: Chest 2 views 01/23/2020, CT abdomen and pelvis 02/17/2023 FINDINGS: There is no pneumonia, pleural effusion, or pneumothorax. The heart size is normal. IMPRESSION: 1. No acute cardiopulmonary disease. Reviewed, dictated and finalized at location E.
--- NOTE | ~2023-02-17 | CT_ITS ---
EXAMINATION: CT abdomen pelvis w con DATE: 02/17/2023 03:23 INDICATION: Abdominal pain. Nausea and vomiting. TECHNIQUE: Computed tomography (CT) of the abdomen and pelvis was performed with 100 mL Omnipaque 350 intravenous contrast. Automated exposure control and iterative reconstruction technique were employe d. The dose-length product was 1651.14 mGy-cm. COMPARISON: CT abdomen and pelvis 02/11/2023 FINDINGS: The visualized portions of the lung bases demonstrate mild atelectasis. No pleural effusion . The heart size is normal. No pericardial effusion. The liver, gallbladder, spleen, pancreas, adrena l glands, and kidneys are normal. There are no dilated loops of bowel. There is wall thickening of mu ltiple loops of ileum. The appendix is normal. There are no pathologically enlarged lymph nodes. Ther e is no free intraperitoneal fluid. There is mild thoracic and lumbar spondylosis. IMPRESSION: 1. New wall thickening of multiple loops of ileum, consistent with enteritis. Reviewed, dictated and finalized at location E.
[2023-02-17 00:25] VITALS: BP 141/95; PULSE 79; RESP 18; TEMP 36.6; O2SAT 100
[2023-02-17 01:14] LABS: Basophils Percent Auto 0.3 % (0.2-1.2); Eosinophils Percent Auto 0.3 % (0-4.4); Hematocrit 41.5 % (37.0-47.0); Hemoglobin 12.9 g/dL (12.0-15.0); Immature Granulocyte Absolute 0.02 K/mm3 (0.00-0.031); Immature Granulocyte Percent A 0.3 % (0-0.5); Lymphocytes Absolute Auto 0.92 K/mm3 (0.9-3.2); Lymphocytes Percent Auto 13.7 % (18.3-44.2); Mean Corpuscular HGB Conc 31.1 g/dl (32-36); Mean Corpuscular Hemoglobin 28.2 pg (26-34); Mean Corpuscular Volume 90.6 fl (80-100); Mean Platelet Volume 9.2 fl (7.4-10.4); Monocytes Absolute Auto 0.5 K/mm3 (0.1-0.6); Monocytes Percent Auto 7.7 % (2.6-8.5); Neutrophils Absolute Auto 5.2 K/mm3 (1.3-6.7); Neutrophils Percent Auto 77.7 % (45.5-73.1); Platelet Count Result 284 k/mm3 (150-375); Red Blood Count 4.58 M/mm3 (4.2-5.4); Red Cell Distribution Width 12.7 % (11.5-14.5); White Blood Count 6.7 K/mm3 (4.5-10.0)
--- NOTE | 2023-02-17 01:24 | ECG_ITS ---
Measurements Intervals [place] Rate: 64 P: 53 WA: 185 QRS: 8 QRSD: 83 T: 28 QT: 430 QTc: 446 Interpretive Statements SINUS RHYTHM DELAYED PRECORDIAL R/S TRANSITION BORDERLINE ECG COMPARED TO ECG 01/23/2020 05:19:48 SINUS RHYTHM NOW PRESENT Electronically Signed On 02-17-2023 6:25:22 CDT by Danny Wasserman D.O.
[2023-02-17 01:27] LABS: Alanine Aminotransferase 19 U/L (6-35); Albumin Level 4.5 g/dL (3.5-5.1); Alkaline Phosphatase 56 U/L (38-126); Anion Gap 7 mmol/L (8-16); Aspartate Amino Transferase 27 U/L (14-36); Bilirubin,Total 0.8 mg/dL (0.2-1.3); Blood Urea Nitrogen 12 mg/dL (7-17); Calcium 9.3 mg/dL (8.4-10.2); Carbon Dioxide 26 mmol/L (22-30); Chloride 103 mmol/L (98-107); Estimated CRCL calculation 157 ml/min; Estimated Glomerular Filt Rate > 60; Glucose 119 mg/dL (65-110); Lipase 57 U/L (23-300); Potassium 4.2 mmol/L (3.4-5.0); Sodium 136 mmol/L (137-145)
[2023-02-17] MEDS: SODIUM CHLORIDE 0.9% IV 1,000 ML 999 ML IV CONT (01:40)
[2023-02-17] MEDS: ONDANSETRON INJ 4 MG/2 ML VIAL IV PUSH (01:41)
[2023-02-17] MEDS: HYDROmorphone HCL INJ (*CRX) 1 MG/ML SYR IV PUSH (01:41)
--- NOTE | 2023-02-17 01:44 | ED.ABDPAIN ---
HPI - Abdominal Pain General Chief Complaint: Abdominal Pain Stated Complaint: abd pain, N/V/D Time Seen by Provider: 02/17/23 01:06 History of Present Illness HPI narrative: Patient is a 37-year-old female presenting with abdominal pain. Patient states that she was treated for colitis several weeks ago. She followed up with her PCP who obtained a repeat CT scan about 5 days ago which was normal. States that she was doing well until today when her abdominal pain returned as well as the diarrhea. States that she has had diarrhea all day long. States that she was also nauseated and had several episodes of emesis though now she is just dry heaving. She continues to have intermittent sharp pain all over her abdomen. No dysuria, hematuria, vaginal bleeding, vaginal discharge. States that she had an episode of some chest pain earlier which is resolved. No fevers or chills, shortness of breath, leg swelling. No further complaints. Related Data Home Medications Medication Instructions Recorded Confirmed vit no.95-ferrous 1 tablet PO DAILY 05/26/19 01/21/23 fumarate 28 mg-folic acid 800 mcg tablet () Allergies Allergy/AdvReac Type Severity Reaction Status Date / Time Cephalosporins Allergy Unknown Swelling Verified 01/21/23 07:55 Penicillins Allergy Unknown Swelling Verified 01/21/23 07:55 Review of Systems Review of Systems: All systems reviewed & are unremarkable except as noted in HPI and below PMFSH Past Medical History Medical History Anxiety Diabetes Elevated BP without diagnosis of hypertension Surgical History Surgical History History of tonsillectomy Family History Family History Grandparent Diabetes mellitus Mother Patient's mother is in good health Father Patient's father is in good health Family history of diabetes mellitus in first degree relative Patient's father is , Onset Age: 48 Sibling Patient's sister is in good health Social History Social History Smoking status: Never smoker Second hand tobacco smoke exposure: No Alcohol intake: current Substance use: never Lack of Transportation: No Lack of Food: Never True Current Housing: I Have Housing Concerned About Future Housing: No Difficulty Paying Gas/Electric Bills: No Difficulty Paying for Meds: No Currently Unemployed: No Education: Master's Degree or Higher Difficulty w/ Childcare or Family Care: No Gender identity (if verbalized by the patient): Female Spiritual care concerns: No Exam Narrative: GENERAL: Well-appearing, nontoxic, no acute distress, pleasant and cooperative HEAD: Normocephalic, atraumatic. EYES: PERRLA and EOMI. ENT: Nares clear, no rhinorrhea or epistaxis. Mucous membranes moist. NECK: Supple. CHEST: Clear to auscultation. No respiratory distress. HEART: Regular rate and rhythm ABDOMEN: Soft, diffusely tender without guarding or rebound EXTREMITIES: Normal range of motion. No edema. SKIN: Warm, dry, no rash. NEURO: No focal deficits. Alert and oriented x3. PSYCH: Normal mood and affect. Course Vital Signs Vital signs: Vital Signs Temperature 97.8 F 02/17/23 00:25 Pulse Rate 79 02/17/23 00:25 Respiratory Rate 18 02/17/23 00:25 Blood Pressure 141/95 H 02/17/23 00:25 Pulse Oximetry 100 02/17/23 00:25 Oxygen Delivery Room Air 02/17/23 00:25 Temperature 97.8 F 02/17/23 00:25 Pulse Rate 65 02/17/23 01:58 Respiratory Rate 16 02/17/23 01:58 Blood Pressure 118/68 02/17/23 01:58 Pulse Oximetry 95 02/17/23 01:58 Oxygen Delivery Room Air 02/17/23 00:25 MDM - Abdominal Pain MDM Narrative Medical decision making narrative: Patient is a 37-year-old fe
[2023-02-17 01:58] VITALS: BP 118/68; PULSE 65; RESP 16; O2SAT 95
[2023-02-17 02:25] LABS: Troponin I < 0.012 ng/mL (0.000-0.034)
[2023-02-17 02:37] LABS: Beta HCG Quantitative < 2.39 mIU/ML
[2023-02-17 03:44] LABS: Appearance Urine Turbid (Clear); Bacteria Urine 4+ /hpf; Bilirubin Urine Negative (Negative); Blood Urine 2+ (Negative); Color Urine Dark Yellow (Yellow); Glucose Urine UA Negative (Negative); Hyaline Casts Urine Present /lpf; Ketones Urine 2+ mg/dL (Negative); Leukocyte Esterase Ur Trace LEU/UL (Negative); Mucus Urine Present /lpf; Nitrate Urine Negative (Negative); Protein Urine 1+ mg/dL (Negative); Specific Grav Ur 1.025 (1.001-1.035); Squamous Epithelial Cell Urine Many /hpf (Few); Urobilinogen Urine 0.2 mg/dL (<2.0); pH Urine 5.5 (5.0-9.0)
[2023-02-17 03:45] LABS: Add Urine Microscopic? YES
[2023-02-17 04:29] LABS: Troponin I < 0.012 ng/mL (0.000-0.034)
[2023-02-17] MEDS: metroNIDAZOLE 250 MG TABLET 500 MG PO (06:19)
[2023-02-17] MEDS: CIPROFLOXACIN 500 MG TAB PO (06:19)
--- NOTE | 2023-02-17 06:27 | PC.NURSE ---
Cipro override due to first dose being dropped on the ground.
== END 2023-02-17 06:34 | disposition home or self-care (01) ==
PROVIDERS: Emergency Provider Emergency Medicine; PCP Physician Assistant
DX: K52.9 Noninfective gastroenteritis and colitis, unspecified (principal); N39.0 Urinary tract infection, site not specified; E11.9 Type 2 diabetes mellitus without complications; Z79.85 Long-term (current) use of injectable non-insulin antidiabetic drugs
CPT/HCPCS: 36415; 71045; 74177; 80053; 81001; 83690; 84484; 84702; 85025; 87086; 87088; 93005; 96361; 96374; 96375; 99284; A9270; J1170; J2405; J7030; Q9967

== ENCOUNTER 2023-02-28 15:30 | Outpatient (CLI) | payer BC, SELFPAY ==
[2023-02-28 16:24] LABS: CRP < 0.5 mg/dL (<1.0)
[2023-02-28 16:40] LABS: Erythrocyte Sedimentation Rate 16 mm/hr (0-20)
[2023-02-28 17:00] LABS: Toxigenic C. Diff NEGATIVE (NEGATIVE)
[2023-02-28 17:16] LABS: Thyroid Stimulating Hormone Reflex 0.449 uIU/mL (0.465-4.68)
[2023-02-28 17:43] LABS: Free T4 Free Thyroxine Reflex 1.04 ng/dL (0.78-2.19)
[2023-02-28 18:37] LABS: Total Triiodothyronine (T3) 1.13 NG/ML (0.97-1.69)
[2023-03-04 20:25] LABS: Immunoglobulin A 115 mg/dL (47-310); TTG IGA AB <1.0 U/mL (<15.0)
[2023-03-06 14:56] LABS: Calprotectin, Stool 16 mcg/g
== END 2023-02-28 15:31 | disposition home or self-care (01) ==
LOC: ANHLAB 15:31
PROVIDERS: PCP Physician Assistant; Visit Provider Nurse Practitioner
DX: K52.9 Noninfective gastroenteritis and colitis, unspecified (principal)
CPT/HCPCS: 36415; 82784; 83993; 84439; 84443; 84480; 85652; 86140; 86364; 87045; 87177; 87209; 87269; 87427; 87449; 87493

== ENCOUNTER 2023-03-21 01:52 | Day surgery (SDC) | payer BC, SELFPAY ==
[2023-03-08 08:22] VITALS: BMI 37.6
--- NOTE | 2023-03-18 10:51 | SUR.PREOP ---
Patient called regarding upcoming procedure. Reviewed preop instructions, appointment times, and procedure prep.
--- NOTE | 2023-03-18 10:55 | SUR.PREOP ---
Patient called regarding upcoming procedure. Reviewed preop instructions, appointment times, and procedure prep. Prep instructions emailed to the patient per patient's request.
[2023-03-21 11:23] LABS: Glucose Point of Care 102 mg/dl (65-105)
[2023-03-21 11:27] VITALS: BP 121/78; PULSE 57; RESP 18; TEMP 36.3; O2SAT 100; BMI 39.2
--- NOTE | 2023-03-21 11:33 | WPDANESEPPF ---
Anes - Initial Pre Proc Eval Procedure: Operation Date: 03/21/23 12:30 Proposed Procedures p Colonoscopy - Agapito Chirinos MD Date/Time: 03/21/23 11:33 Surgeon: Agapito Chirinos MD Pre Op Diagnosis: Noninfective gastroenteritis and colitis Patient Data Age: 37 Gender: F Height: 1.8 m Weight: 127.8 kg Last Vital Signs Temp 97.3 F L 03/21/23 11:27 Pulse 57 L 03/21/23 11:27 Resp 18 03/21/23 11:27 BP 121/78 03/21/23 11:27 Pulse Ox 100 03/21/23 11:27 O2 Del Method Room Air 03/21/23 11:27 Allergies Allergy/AdvReac Type Severity Reaction Status Date / Time Cephalosporins Allergy Unknown Swelling Verified 03/21/23 11:23 Penicillins Allergy Unknown Swelling Verified 03/21/23 11:23 Home Medications Medication Instructions Recorded Confirmed Type amlodipine 5 mg tablet 5 mg PO DAILY #90 tabs 09/25/21 03/21/23 Rx rosuvastatin 5 mg tablet 5 mg PO DAILY #90 tabs 12/09/21 03/21/23 Rx ondansetron 4 mg disintegrating 4 mg PO Q6H PRN nausea and 01/13/23 03/21/23 Rx tablet vomiting #20 tabs ferrous sulfate 325 mg (65 mg 325 mg PO DAILY 03/08/23 03/21/23 History iron) tablet fiber 1 cap PO DAILY 03/08/23 03/21/23 History omega-3 fatty acids 1 cap PO DAILY 03/08/23 03/21/23 History Laboratory Tests 03/21/23 11:21 POC Capillary Glucose 102 mg/dl (65-105) Patient hx anesthesia problems: none Family hx anesthesia problems: none Results Review: All pre-operative results and documents have been reviewed as part of the pre-operative evaluation. [facility] Past Medical History Medical History Anxiety Diabetes Elevated BP without diagnosis of hypertension Surgical History Surgical History History of tonsillectomy Family History Family History Grandparent Diabetes mellitus Mother Patient's mother is in good health Father Patient's father is in good health Family history of diabetes mellitus in first degree relative Patient's father is , Onset Age: 48 Sibling Patient's sister is in good health Social History Social History Smoking status: Never smoker Second hand tobacco smoke exposure: No Alcohol intake: current Alcohol use details: occasional-rare Substance use: never Substance use type: does not use Lack of Transportation: No Lack of Food: Never True Current Housing: I Have Housing Concerned About Future Housing: No Difficulty Paying Gas/Electric Bills: No Difficulty Paying for Meds: No Currently Unemployed: No Education: Master's Degree or Higher Difficulty w/ Childcare or Family Care: No Living arrangements: with family Gender identity (if verbalized by the patient): Female Spiritual care concerns: No Anes - Eval Final PreProcedure Day of Procedure 03/21/23 11:33 Patient weight: morbidly obese Heart: regular rate and rhythm Lungs: clear to auscultation Airway: Mallampati scale class III Neurological: alert and oriented Last oral intake: >/= 8 hours ASA classification: III Emergent: no Anesthetic plan: proceed Anesthesia type and monitoring: general GIVS and standard monitoring Results Review: All pre-operative results and documents have been reviewed as part of the pre-operative evaluation. Informed Consent: The patient's anesthetic plan and its attendant risks and benefits were discussed with the patient/family/POA. Questions were solicited and answers provided to the satisfaction of the patient/family/POA.
[2023-03-21] MEDS: LACTATED RINGERS 1,000 ML 150 ML IV CONT (11:46)
--- NOTE | 2023-03-21 11:56 | WPDHPUPDATE1 ---
History and Physical Update Update Date/Time: 03/21/23 11:56 History and Physical has been reviewed, including an updated exam of the patient. There are NO changes in the patient's condition. Risks, benefits, and alternatives have been discussed and questions answered. Patient agrees to proceed with procedure.
[2023-03-21 11:57] VITALS: BP 136/72; PULSE 61; RESP 19; O2SAT 100
--- NOTE | 2023-03-21 12:47 | SUR.OPER ---
delay between time out and start of procedure due to investigation of irregular heart rate
--- NOTE | 2023-03-21 13:03 | ECG_ITS ---
Measurements Intervals [place] Rate: 44 P: 51 IN: 158 QRS: 3 QRSD: 84 T: -4 QT: 479 QTc: 411 Interpretive Statements SINUS BRADYCARDIA POOR R-WAVE PROGRESSION NONSPECIFIC T-WAVE ABNORMALITY ABNORMAL ECG COMPARED TO ECG 02/17/2023 01:47:26 HEART RATE IS REDUCED/NO OTHER DIFFERENCE Electronically Signed On 03-21-2023 15:27:53 [employer] by Dave Gallego M.D.
[2023-03-21 13:07] VITALS: BP 132/77; PULSE 62; RESP 20; O2SAT 100
[2023-03-21 13:17] VITALS: BP 128/79; PULSE 56; RESP 20; O2SAT 100
--- NOTE | 2023-03-21 13:29 | SUR.PHASEII ---
ECG completed in recovery, Dr. Babin read results and gave okay to discharge patient. Pt. discharged without difficulty.
== END 2023-03-21 13:32 | disposition home or self-care (01) ==
PROVIDERS: PCP Physician Assistant; Visit Provider Internal Medicine Gastroenterology
PROC: 0DJD8ZZ Inspection of Lower Intestinal Tract, Via Natural or Artificial Opening Endoscopic (ICD-10-PCS; CPT 45378; principal; 2023-03-21 12:30)
DX: K52.9 Noninfective gastroenteritis and colitis, unspecified (principal); E66.01 Morbid (severe) obesity due to excess calories; Z68.41 Body mass index [BMI] 40.0-44.9, adult; E11.9 Type 2 diabetes mellitus without complications; F41.9 Anxiety disorder, unspecified
CPT/HCPCS: 45378; 82948; 93005; J2704; J7120

== ENCOUNTER 2023-05-03 11:49 | Outpatient (CLI) | payer BC, SELFPAY ==
[2023-05-03 12:48] LABS: Thyroid Stimulating Hormone 0.956 uIU/mL (0.465-4.680)
== END 2023-05-03 11:50 | disposition home or self-care (01) ==
LOC: ANHLAB 11:51
PROVIDERS: PCP Physician Assistant; Visit Provider Nurse Practitioner
DX: R79.89 Other specified abnormal findings of blood chemistry (principal)
CPT/HCPCS: 36415; 84443

== ENCOUNTER 2023-05-16 08:15 | Outpatient (CLI) | payer BC, SELFPAY ==
--- NOTE | ~2023-05-16 | XR_ITS ---
EXAMINATION: XR UGIAC w small bowel DATE: 05/16/2023 10:27 INDICATION: Abdominal cramping. Diarrhea. Vomiting. TECHNIQUE: The patient drank thick barium, gas-producing crystals, and thin barium. Fluoroscopy of th e esophagus, stomach, and small bowel was performed. Fluoroscopy exposure time was 0.8 minutes. Radio graphs of the abdomen were obtained. The total number of images was 288. COMPARISON: CT abdomen and pelvis 02/17/2023 FINDINGS: UPPER GASTROINTESTINAL SERIES: There is no mass or stricture of the esophagus. Esophageal motility is normal. There is no hiatal her julian. There was no gastroesophageal reflux with provocative maneuvers. The stomach shows a normal fold ing pattern. SMALL BOWEL SERIES: The small bowel shows a normal folding pattern. Specifically, the terminal ileum is normal. Transit t boby to the colon was 1 hour 30 minutes. IMPRESSION: 1. Normal upper gastrointestinal series. 2. Normal small bowel series. Reviewed, dictated and finalized at location A. TECH
== END 2023-05-16 08:16 | disposition home or self-care (01) ==
LOC: ANHIMG 08:18
PROVIDERS: PCP Physician Assistant; Visit Provider Nurse Practitioner
DX: R93.3 Abnormal findings on diagnostic imaging of other parts of digestive tract (principal)
CPT/HCPCS: 74246; 74248

== ENCOUNTER → 2023-06-06 11:16 | Outpatient (CLI) | payer BC, SELFPAY ==
--- NOTE | ~2023-06-06 | MM_ITS ---
EXAMINATION: MM screening ever BI w indira HISTORY: Screening TECHNIQUE: Craniocaudal and mediolateral oblique 3-D tomosynthesis images were obtained and synthetic 2-D images were generated. CAD analysis was submitted and interpreted. COMPARISON: No prior mammogram is available for comparison at this institution. BREAST PARENCHYMAL COMPOSITION: Not dense: There are scattered areas of fibroglandular density. FINDINGS: There is no mammographic evidence for malignancy in the right breast. There is a small mass in the upper outer quadrant of the left breast, middle third. IMPRESSION: 1. Small left breast mass, upper outer quadrant. 2. Additional mammographic views and possible breast ultrasound are recommended. BI-RADS Category 0: Incomplete: Needs additional imaging evaluation. Reviewed, dictated and finalized at location A. MILL GRINDER IMPRESSION: 1. Small left breast mass, upper outer quadrant. 2. Additional mammographic views and possible breast ultrasound are recommended . BI-RADS Category 0: Incomplete: Needs additional imaging evaluation.
== END ==
PROVIDERS: PCP Obstetrics & Gynecology; Visit Provider Obstetrics & Gynecology
DX: Z12.31 Encounter for screening mammogram for malignant neoplasm of breast (principal); R92.8 Other abnormal and inconclusive findings on diagnostic imaging of breast
CPT/HCPCS: 77063; 77067

== ENCOUNTER 2023-07-27 07:48 | Outpatient (CLI) | payer BC, SELFPAY ==
--- NOTE | ~2023-07-27 | MM_ITS ---
EXAMINATION: MM diagnostic ever LT w indira HISTORY: Small left breast mass reported in upper outer quadrant on June 06, 2023 screening mammo gram TECHNIQUE: Additional 3-D tomosynthesis images of the left breast were performed and synthetic 2-D im ages were generated. Rolled medial and rolled lateral craniocaudal views. CAD analysis was submitted and interpreted. COMPARISON: June 06, 2023 bilateral screening mammogram FINDINGS: The previously described small mass reported in the upper outer quadrant of the left breast is not reproduced on coned compression craniocaudal view or rolled medial and lateral craniocaudal v iews IMPRESSION: 1. No mammographic evidence of malignancy 2. Routine annual mammographic screening is recommended BI-RADS Category 1: Negative Reviewed, dictated and finalized at location A.
== END 2023-07-27 07:49 ==
LOC: MICIMG 07:49
PROVIDERS: PCP Obstetrics & Gynecology; Visit Provider Obstetrics & Gynecology
DX: R92.8 Other abnormal and inconclusive findings on diagnostic imaging of breast (principal)
CPT/HCPCS: 77061; 77065; G0279

== ENCOUNTER 2023-11-04 10:40 | Outpatient (CLI) | payer BC, SELFPAY ==
[2023-11-04 11:21] LABS: Strep Group A RT-PCR NOT DETECTED (Negative)
== END 2023-11-04 10:41 | disposition home or self-care (01) ==
LOC: ANHLAB 10:42
PROVIDERS: PCP Internal Medicine; Visit Provider Internal Medicine
DX: J02.9 Acute pharyngitis, unspecified (principal)
CPT/HCPCS: 87651

== ENCOUNTER 2024-08-25 07:50 | Outpatient (CLI) | payer BC, SELFPAY ==
--- NOTE | ~2024-08-25 | MM_ITS ---
EXAMINATION: MM screening ever BI w indira HISTORY: Screening mammogram TECHNIQUE: Craniocaudal and mediolateral oblique 3-D tomosynthesis images were obtained and synthetic 2-D images were generated. CAD analysis was submitted and interpreted. COMPARISON: 06/06/2023 BREAST PARENCHYMAL COMPOSITION:Not Dense. The breasts are almost entirely fatty FINDINGS: No suspicious mass, calcification, or architectural distortion are identified in either blanca ast to suggest malignancy. There has been no suspicious interval change. IMPRESSION: No mammographic evidence of malignancy. Recommend routine screening mammography in one year. BI-RADS Category 1: Negative Reviewed, dictated and finalized at location .
== END 2024-08-25 07:51 | disposition home or self-care (01) ==
LOC: MICIMG 07:50
PROVIDERS: PCP Internal Medicine; Visit Provider Obstetrics & Gynecology
DX: Z12.31 Encounter for screening mammogram for malignant neoplasm of breast (principal)
CPT/HCPCS: 77063; 77067

== ENCOUNTER 2024-09-12 00:35 | Day surgery (SDC) | payer BC, SELFPAY ==
[2024-08-31 14:01] VITALS: BMI 39.8
--- NOTE | 2024-08-31 14:30 | PC.NURSE ---
Report to the Outpatient Waiting Room, entrance under the green pavilion located off [facility], at time 10:00AM on date 09/12/2024. Planned Procedure Time: 12:00PM.? Time changes happen often and if your time is changed the preop area will call you the afternoon before. - You and your visitor will be asked to self-screen and do not enter if you have any COVID symptoms. Please call surgeon if you need to reschedule. - A mask is optional within the hospital at this time. Patients may have clear liquids (water, carbonated beverages, clear teas, apple juice) until 3 hours prior to surgery with a maximum of 20 ounces. - No food from midnight until time of surgery and no smoking, or chewing tobacco (or any form of nicotine). No chewing gum, candy or mints. Take only the following medications with a SIP of water on the morning of surgery: N/A DO NOT STOP ANY OF YOUR OTHER PRESCRIPTION MEDICATIONS PRIOR TO SURGERY EXCEPT THE FOLLOWING Hold all vitamins and supplements for 3 days per anesthesiologist. Date to take last dose- 09/09/2024 Please no make-up, nail azeri, hairspray, perfume, deodorant, or body powder the day of surgery.? No jewelry (including any body piercings) or valuables the day of surgery, leave them at home.? Please take a shower or bath the night before, or the morning of, surgery with an antibacterial soap.? Wear comfortable, loose fitting clothing.? - Jewelry must be removed prior to entering the operating room.? Rings and piercings that are not removed may be cut off. - The hospital will not accept responsibility for valuables.? - Please leave all valuables, including medications, at home the day of surgery. If you are going home after surgery, a licensed cattle driver must drive you home.? - NO public transportation without another adult if you receive anesthesia. - We recommend that an adult stay with you for 24 hours following discharge. - We also recommend that you do not drive, make important decision, drink alcoholic beverages, or take any drugs that were not prescribed by your health care provider for at least 24 hours after your discharge time. Follow any additional instructions given to you from your surgeon. Telephone instructions given to patient and asked if any additional questions and then verbalized understanding. Patient advised to call surgeon office or pre surgery nurse liaison [phone] if any additional questions.
--- OUTSIDE RECORDS SUMMARY | 2024-09-12 00:38 | XMS_ITS | Data Portability ---
Author Organization [facility], Main Office Address [address] [place] [address] Assessment No assessment recorded. Plan of Treatment Reminders Order Date Submit Date Provider Last Modified By Organization Details Last Modified Time Details Appointments None record ed. Lab None record ed. Referral None record ed. Procedures None record ed. Surgeries None record ed. Imaging None record ed. Medication Orders None record ed. Patient TargetsNo targets recorded. Patient Instructions Encounter Date Encounter Id Patient Instructions Last Modified By Organization Details Last Modified Time 11/21/2018 [id number] traction component possibly. Rec no tx unless approved byob/supervisor statement clerks. Pt desires no tx and is ok with not txing at this time. N/C. [email or web address] Not available 11/21/2018 16:55:00 Reason for Referral None Reported. Problems Name Problem SNOMED Code Status Onset Date Resolution Date Notes Provider Name and Address Organization Details Recorded Time Alopecia areata 66995717 Active 019 Dillan Goodson MD [address] [facility] [address], [place], [address] , [facility] 9 15:04:50 Problem Notes None recorded. Medical Equipment None Reported. Allergies Allergen ID Allergen Name Allergen Category Reaction Reaction Severity Criticality Documentation Date Start Date Code Code System Note Provider Name and Address Organization Details Recorded Time 1522 Medicinal product containin g cephalosp codi and acting as antibacte rial agent (product) medicatio n Not available Not available Not available 10/04/2018 76605 9009 SNOMED Vonzetta [facility] 9 14:45:09 1523 Product containin g penicilli n (product) medicatio n Not available Not available Not available 10/04/2018 42680 8001 SNOMED Vonzetta MARTÍNEZ [facility] 9 14:45:16 Medications Name Sig Start Date Stop Date Status Note LastModified by Organization Details LastModified Time medroxyprogest erone 10 mg tablet active Not Available Not Available Not Available methocarbamol 500 mg tablet active Not Available Not Availabl e Not Available metformin 500 mg tablet TAKE 1 TABLET BY MOUTH TWICE DAILY active Not Available Not Available No t Available ibuprofen 800 mg tablet TAKE 1 TABLET BY MOUTH EVERY 8 HOURS WITH FOOD active Not Available Not Available No t Available ondansetron HCl 4 mg tablet active Not Available Not Available Not Available rizatriptan 10 mg tablet TAKE 1 TAB BY MOUTH AT THE ONSET OF HEADACHE; IF NO RELIEF MAY REPEAT 1 TAB AFTER AT LEAST 2 HOURS MAX 3 TABS IN 24 HOURS active Not Available Not Available No t Available amlodipine 5 mg tablet TAKE 1 TABLET BY MOUTH ONCE DAILY active Not Available Not Available No t Available sulfamethoxazo le 800 mg-trimethopri m 160 mg tablet active Not Available Not Available Not Available dicyclomine 20 mg tablet TAKE 1 TABLET BY MOUTH 4 TIMES DAILY active Not Available Not Available No t Available prednisone 50 mg tablet active Not Available Not Available No t Available levofloxacin 750 mg tablet active Not Available Not Availabl e Not Available methylpredniso lone 4 mg tablets in a dose pack TAKE BY MOUTH DIRECTED ON INSIDE OF PACKAGE active Not Available Not Available No t Available ondansetron 4 mg disintegrating tablet DISSOLVE 1 TABLET IN MOUTH EVERY 6 HOURS NEEDED FOR NAUSEA AND VOMITING active Not Available Not Available No t Available betamethasone dipropionate 0.05 % lotion APPLY A FEW DROPS TO THE AFFECTED AREA(S) BY TOPICAL ROUTE 2 TIMES PER DAY IN THE MORNING AND AT BEDTIME ; RUB IN GENTLY AND COMPLETEL Y. NEVER TO FACE. active Not Available Not Available No t Available rosuvastatin 5 mg tablet TAKE 1 TABLET BY MOUTH ONCE DAILY active Not Available Not Available No t Available folic acid active Not Available Not Av ailable Not Available active Not Available Not Avai lable Not Available Contour Next Test Strips USE 1 TO CHECK GLUCOSE 5 TIMES DAILY active Not Available Not Available No t Available Vitals None Recorded Social History None recorded. Functional Status None recorded. Mental Status None recorded. Family History Nothing Reported. Medical History No medical history recorded. Gynecological HistoryNo gynecological history recorded. 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 Wants to know if she can get the shot. Dillan Goodson MD [address] [facility] [address], [place], [address], [facility] 11/21/2018 16:55:06 OBGyn Episode No OBEpisode recorded.
--- OUTSIDE RECORDS SUMMARY | 2024-09-12 00:38 | XMS_ITS | CONTINUITY OF CARE DOCUMENT ---
Author Name sushma ordaz Address Unknown Organization [facility] Address [address] [place] [address] Phone [phone] Care Team Providers Care Nuclear Equipment Operator Name Role Phone Ildefonso Winston MD Unavailable KAITY AKBAR NP Unavailable KAITY AKBAR NP Unavailable [phone] PROBLEMS Condition Status Date Provider Notes TRINA, suspected active Mckenzie Balbuena PRODUCT SAFETY ADMINISTRATOR Syncope active Mckenzie Balbuena PRODUCT SAFETY ADMINISTRATOR INSURANCE PROVIDERS Payer name Policy type / Coverage type Boo red democrat ID [facility] Blue [facility] [id number] TREATMENT PLAN Date Name Sleep Study Home Monitor - Telemetry (Mobile Cardiac)
--- OUTSIDE RECORDS SUMMARY | 2024-09-12 00:38 | XMS_ITS | Clinical Summary ---
Author Organization [facility] Address [address] [place] [address] Phone Care Team Providers Care Bullet Lubricating Machine Operator Name Role Phone Mathew Sanchez DO Primary Care Provider [phone] Allergies Active Allergy Reactions Criticality Noted Date Comments Cephalosporins Swelling 01/03/2024 Penicillins Swelling 01/03/2024 Medications rosuvastatin (CRESTOR) 5 MG Tablet Take 1 Tablet by mouth daily. Active Active Problems No known active problems Social History Tobacco Use Types Packs/Day Years Used Date Smoking Tobacco: Never Smokeless Tobacco: Never Tobacco Cessation:Counseling Given: Not Answered Alcohol Use Standard Drinks/Week Comments Not Currently 0 (1 standard drink = 0.6 oz pur e alcohol) Sexually Active Control Partners Comments Yes Comments No Sex and Gender Information Value Date Recorded Sex Assigned at Not on file Legal Sex Female 9:57 AM CDT Gender Identity Not on file Sexual Orientation Not on file Last Filed Vital Signs Vital Sign Reading Time Taken Comments Blood Pressure 130/72 05/31/2024 4:05 PM SKI PRODUCTION SUPERVISOR Pulse 74 05/31/2024 4:05 PM SKI PRODUCTION SUPERVISOR Temperature 36.8 C (98.2 F) 05/31/2024 4:05 PM SKI PRODUCTION SUPERVISOR Respiratory Rate 17 05/31/2024 4:05 PM SKI PRODUCTION SUPERVISOR Oxygen Saturation 97% 05/31/2024 4:05 PM SKI PRODUCTION SUPERVISOR Inhaled Oxygen Concentration - - Weight - - Height - - Body Mass Index - - Plan of Treatment Health Maintenance Due Date Last Done Comments Hepatitis C Virus (HCV) Screening 1985 TdaP Immunization 1985 Hepatitis B Immunization (1 of 3 - 19+ 3-dose series) 2002 Pap Smear 2004 Cervical Cancer Screening (CCS) 2013 HPV/Cotest 2013 Discussion re Starting/Frequ ency of Mammograms 2023 Influenza Immunization (#1) 2023 SARS-COV-2 Immunization (2023- season) 2023 Respiratory Syncytial Virus (RSV) Immunization (Adult) (1 - 1-dose 75+ series) 2058 Meningococcal Immunization (ACWY) Aged Out No longer eligible based on patient's age to complete this topic Pneumococcal Immunization Combined Aged Out No longer eligible based on patient's age to complete this topic Rotavirus Immunization Aged Out No lo nger eligible based on patient's age to complete this topic [place] [address] [address] [place] [address] Care Teams Bullet Lubricating Machine Operator Relationship Specialty Start Date End Date Mathew Sanchez DO [address] [place] [address] PCP - General Internal Medicine 01/03/24
[2024-09-12 10:08] VITALS: BMI 40.5
[2024-09-12] MEDS: LACTATED RINGERS 1,000 ML 30 ML IV CONT (10:30)
--- NOTE | 2024-09-12 10:30 | SUR.PREOP ---
1030- Patient notified procedure start time may be delayed and pt. verbalized understanding.
[2024-09-12] MEDS: ACETAMINOPHEN 500 MG TABLET 1000 MG PO (10:35)
[2024-09-12 10:43] VITALS: BP 142/88; PULSE 61; RESP 18; TEMP 36.5; O2SAT 100
--- NOTE | 2024-09-12 11:54 | WPDANESEPPF ---
Anes - Initial Pre Proc Eval Procedure: Operation Date: 09/12/24 12:00 Proposed Procedures p Hysteroscopy, Dilation and Curettage - Bakari Daniel MD Date/Time: 09/12/24 11:54 Surgeon: Bakari Daniel MD Pre Op Diagnosis: irregular heavy bleeding Patient Data Age: 39 Gender: F Height: 1.8 m Weight: 131.8 kg Last Vital Signs Temp 97.7 F 09/12/24 10:43 Pulse 61 09/12/24 10:43 Resp 18 09/12/24 10:43 BP 142/88 H 09/12/24 10:43 Pulse Ox 100 09/12/24 10:43 O2 Del Method Room Air 09/12/24 10:43 Allergies Allergy/AdvReac Type Severity Reaction Status Date / Time Cephalosporins Allergy Unknown Swelling Verified 09/12/24 10:38 Penicillins Allergy Unknown Swelling Verified 09/12/24 10:38 Home Medications ?Medication ?Instructions ?Recorded ?Confirmed ?Type rosuvastatin 5 mg tablet 5 mg PO DAILY #90 tabs 06/08/23 09/12/24 Rx multivitamin (Daily Multi-Vitamin 1 tablet PO DAILY 08/31/24 09/12/24 History tablet) Patient hx anesthesia problems: none Family hx anesthesia problems: none Results Review: All pre-operative results and documents have been reviewed as part of the pre-operative evaluation. [facility] Past Medical History Medical History Anxiety Nausea vomiting and diarrhea Mass of right axilla Impaired fasting glucose Idiopathic hypotension Headache Essential hypertension Encounter for pre-employment examination Dietary counseling and surveillance (07/18/15) Cutaneous abscess, unspecified Congenital sucrase-isomaltase deficiency Low TSH level Irritable bowel syndrome with diarrhea Elevated BP without diagnosis of hypertension Anxiety Diabetes Surgical History Surgical History History of tonsillectomy Family History Family History Grandparent Diabetes mellitus Mother Patient's mother is in good health Hypertension Father Family history of diabetes mellitus in first degree relative Patient's father is , Onset Age: 48 CHF (congestive heart failure) Sibling Patient's sister is in good health Social History Social History (Updated 04/06/24 @ 11:20 by Sari Walters [facility]) Smoking status: Never smoker Second hand tobacco smoke exposure: No Alcohol intake: current Alcohol use details: occasional-rare Substance use: never Substance use type: does not use Do You Feel Safe in your Home?: Yes Lack of Transportation: No Lack of Food: Never True Current Housing: I Have Housing Concerned About Future Housing: No Difficulty Paying Gas/Electric Bills: No Difficulty Paying for Meds: No Currently Unemployed: No Education: Master's Degree or Higher Difficulty w/ Childcare or Family Care: No Living arrangements: with family Occupation/Education: occupation Additional occupation/education comments: [employer] Gender identity (if verbalized by the patient): Female Spiritual care concerns: No Anes - Eval Final PreProcedure Day of Procedure 09/12/24 11:54 Patient weight: morbidly obese Lungs: normal air movement Airway: Mallampati scale class II Neurological: alert and oriented Last oral intake: >/= 8 hours ASA classification: III Emergent: no Anesthetic plan: proceed Anesthesia type and monitoring: general GIVS and standard monitoring Results Review: All pre-operative results and documents have been reviewed as part of the pre-operative evaluation. BMI 40, hyperlipidemia, hx preDM (not on meds). Pt active in exercise group, cardio, no cp or sob. Limited by recent pain in plantar fascia. Informed Consent: The patient's anesthetic plan and its attendant risks and benefits were discussed with the patient/family/POA. Questions were solicited and answers provided to the satisfaction of the patient/family/POA.
--- NOTE | 2024-09-12 12:29 | PM.IMHP ---
H&P: HPI History of Present Illness Date/Time: 09/12/24 12:29 Chief Complaint: Heavy bleeding Narrative: 39 y/o with heavy, irregular vaginal bleeding and an ultrasound showing a thickened endometrial complex. Review of Systems Review of Systems: All systems reviewed & are unremarkable except as noted in HPI and below [facility] Past Medical History Medical History Anxiety Nausea vomiting and diarrhea Mass of right axilla Impaired fasting glucose Idiopathic hypotension Headache Essential hypertension Encounter for pre-employment examination Dietary counseling and surveillance (07/18/15) Cutaneous abscess, unspecified Congenital sucrase-isomaltase deficiency Low TSH level Irritable bowel syndrome with diarrhea Elevated BP without diagnosis of hypertension Anxiety Diabetes Surgical History Surgical History History of tonsillectomy Family History Family History Grandparent Diabetes mellitus Mother Patient's mother is in good health Hypertension Father Family history of diabetes mellitus in first degree relative Patient's father is , Onset Age: 48 CHF (congestive heart failure) Sibling Patient's sister is in good health Social History Social History Smoking status: Never smoker Second hand tobacco smoke exposure: No Alcohol intake: current Alcohol use details: occasional-rare Substance use: never Substance use type: does not use Do You Feel Safe in your Home?: Yes Lack of Transportation: No Lack of Food: Never True Current Housing: I Have Housing Concerned About Future Housing: No Difficulty Paying Gas/Electric Bills: No Difficulty Paying for Meds: No Currently Unemployed: No Education: Master's Degree or Higher Difficulty w/ Childcare or Family Care: No Living arrangements: with family Occupation/Education: occupation Additional occupation/education comments: [employer] Gender identity (if verbalized by the patient): Female Spiritual care concerns: No Meds Home Medications and Allergies Home Medications ?Medication ?Instructions ?Recorded ?Confirmed ?Type rosuvastatin 5 mg tablet 5 mg PO DAILY #90 tabs 06/08/23 09/12/24 Rx multivitamin (Daily Multi-Vitamin 1 tablet PO DAILY 08/31/24 09/12/24 History tablet) Allergies Allergy/AdvReac Type Severity Reaction Status Date / Time Cephalosporins Allergy Unknown Swelling Verified 09/12/24 10:38 Penicillins Allergy Unknown Swelling Verified 09/12/24 10:38 Vital Signs Vital Signs - 24 hr 09/12/24 10:43 Temperature 36.5 C Pulse Rate 61 Respiratory Rate 18 Blood Pressure 142/88 H Pulse Oximetry 100 Oxygen Delivery Room Air Exam Const: Orientation/consciousness: patient oriented x3 Other: Well-developed, well-nourished female in no acute distress. Neck: Thyroid: thyroid normal Lymphatic: no lymphadenopathy noted (in neck, axilla or inguinal nodes) Resp: Effort & Inspection: normal respiratory effort Auscultation: clear to auscultation bilaterally Cardio: Rate: regular rate Rhythm: regular rhythm Heart sounds: S1 normal heart sound present and S2 normal heart sound present GI: Other: ABD: Soft, nontender, nondistended. No guarding or rebound tenderness. No hepatosplenomegaly. : General: Yes no CVA tenderness Other: External genitalia: normal female hair distribution, without lesion. Urethral meatus: no lesion, non prolapsed. Bladder: no mass, nontender Vagina: well-estrogenized, without lesion or discharge. First degree cystocele and first degree uterine prolapse. Cervix: no lesion or discharge. Uterus: small, anteverted, freely mobile, nontender Adnexa: no mass or tenderness. Anus/perineum: no lesions, nontender Back/Spine/Pelvis: Back: no CVA tenderness Skin: General skin exam: normal color and no rashes or lesions noted Neuro: General: patient oriented x3 Extrem: Other: Extremities: nontender with no edema Psych: Mental Status: mental status grossly normal Affect: normal affect Assessment and Plan Assessment and plan (1) Menometrorrhagia: Code(s): N92.1 - Excessive and frequent menstruation with irregular cycle Status: Acute Assessment and Plan: A: Menometrorrhagia with abnormal pelvic ultrasound. P: Have offered hysteroscopy with dilation and sharp curettage. She understands risks of surgery to include risks of anesthesia, risks of pain, infection, bleeding, blood products, thromboembolic phenomena and damage to adjacent structures such as bowel, bladder, ureters, blood vessels and nerves. She understands all these risks and elects to proceed with surgery. (2) Abnormal pelvic ultrasound: Code(s): R93.89 - Abnormal findings on diagnostic imaging of other specified body structures Status: Acute
--- NOTE | 2024-09-12 12:33 | WPDHPUPDATE1 ---
History and Physical Update Update Date/Time: 09/12/24 12:33 History and Physical has been reviewed, including an updated exam of the patient. There are NO changes in the patient's condition. Risks, benefits, and alternatives have been discussed and questions answered. Patient agrees to proceed with procedure.
[2024-09-12] MEDS: LIDOCAINE 1% LOCAL INJ 20 ML VIAL 10 ML INFILTRATE (12:38)
--- NOTE | 2024-09-12 12:55 | S_PTH ---
PATIENT: Sri Thompson LOC: [facility]#:[id number] AGE/SX: 39/F ROOM: RE09/12/[address]: Bakari Daniel MD : 1985 BED: DIS: 09/12/2024 SPEC #: [id number] RECD: 09/13/24 07:09 STATUS: IFEOMA REGlenda #: [id number] REDD: 09/12/24 12:[address]: Bakari Daniel DEPT: [facility] Surgical RECD BY: Vivian Latif ENTERED: 09/13/24 07:09 SP TYPE: Surgical OTHR DR: Mathew Sanchez DO Tissues: A - Endometrial Curettings Procedures: Hematoxylin and Eosin Stain Gross and Microscopic Level 4
--- NOTE | 2024-09-12 13:04 | P.OP_ITS ---
Procedure Note - Detailed Date of Procedure 09/12/24 Pre-op Diagnosis Menometrorrhagia Abnormal pelvic ultrasound Post-op Diagnosis Other (Menometrorrhagia; endometrial polyp) Procedure Performed Hysteroscopy Dilation and sharp curettage Endometrial polypectomy Surgeon Bakari Daniel MD Anesthesia MAC and Local (1% lidocaine) Findings Endometrial polyp. Both tubal ostia seen. Description of Procedure The patient was taken to the operating room where she was prepared and draped in the usual sterile fashion in the dorsal lithotomy position. The bladder was drained with a red rubber catheter. A sterile speculum was placed into the vagina. The anterior lip of the cervix was grasped with single-tooth tenaculum. Ten mL of 1% lidocaine was administered in a paracervical block. The cervix was then gently dilated using Hegar dilators until a 7 mm dilator could be passed. Hysteroscopy was performed using sterile saline as a distention medium. Findings are as noted above. The Aveta resector was advanced and the endometrial polyp was easily resected. Sharp curettage was then performed, and endometrial curettings were collected on a Telfa pad and passed off to be sent to pathology. Hemostasis was excellent. Sponge, lap, needle and instrument co unts were correct. The patient was awakened and taken to the recovery room in stable condition. I was present and scrubbed through the entire procedure. Estimated Blood Loss 5 Drains No Packing No Pathology Yes (Endometrial curettings) Complications None Condition Stable Disposition PACU
[2024-09-12 13:06] VITALS: BP 136/74; PULSE 56; RESP 16; O2SAT 97
[2024-09-12 13:35] VITALS: BP 145/87; PULSE 48; RESP 16
[2024-09-12 14:05] VITALS: BP 161/67; PULSE 44; RESP 16
[2024-09-12 14:20] VITALS: BP 163/75; PULSE 45; RESP 16
== END 2024-09-12 14:26 | disposition home or self-care (01) ==
PROVIDERS: PCP Internal Medicine; Visit Provider Obstetrics & Gynecology
PROC: 0U5B8ZZ Destruction of Endometrium, Via Natural or Artificial Opening Endoscopic (ICD-10-PCS; CPT 58563; principal; 2024-09-12 12:00)
DX: R93.89 Abnormal findings on diagnostic imaging of other specified body structures (principal); N84.0 Polyp of corpus uteri; G89.18 Other acute postprocedural pain; E78.5 Hyperlipidemia, unspecified; I10 Essential (primary) hypertension; K58.0 Irritable bowel syndrome with diarrhea; E11.9 Type 2 diabetes mellitus without complications; F41.9 Anxiety disorder, unspecified; I95.0 Idiopathic hypotension; E66.01 Morbid (severe) obesity due to excess calories; Z68.41 Body mass index [BMI] 40.0-44.9, adult; Z98.890 Other specified postprocedural states; Z82.49 Family history of ischemic heart disease and other diseases of the circulatory system
CPT/HCPCS: 58558; 88305; A9270; J2003; J2250; J2704; J3010; J7120